=== PATIENT | male | born 1950 | race Two or more races ===

== ENCOUNTER 2019-06-20 05:58 | Inpatient (IN) | payer OTHER ==
--- NOTE | 2019-06-20 07:01 | PDOC ---
History of Present Illness - General Chief Complaint: Edema Stated Complaint: FACIAL SWELLING Time Seen by Provider: 06/20/19 07:00 History Source: Patient Exam Limitations: No Limitations - History of Present Illness Initial Comments: 68 year old male with PMH HTN, HLD, DM, gout, osteomyelitis presented to ED for oral swelling since this morning. Pt reported he was in his usual state of health last night, and awoke this AM around [id number] and bit the right side of his tongue, then noticed increasing swelling, prompting him to come to the ED. Pt denied shortness of breath, chest pain, fever, chills, nausea, vomiting. Pt reported mild difficulty with speaking 2/2 swelling under his tongue. ROS General: denied fever, chills, generalized weakness. HEENT: admitted to oral swelling. denied sore throat, rhinorrhea, ear pain. Cardiovascular: denied chest pain, palpitations, syncope, diaphoresis. Respiratory: denied shortness of breath, cough, sputum production, hemoptysis. Gastrointestinal: denied abdominal pain, nausea, vomiting, diarrhea, constipation, blood in stool. Genitourinary: denied dysuria, increased urinary frequency, hematuria, urinary incontinence, flank pain. Back: denied back pain. Musculoskeletal: denied joint pain, muscle pain, joint swelling. Neurological: denied headache, dizziness, numbness, tingling, weakness. Integumentary: denied rash, laceration, abrasion. Hematologic/Lymphatic: denied bruising or bleeding. PE Constitutional: Well-nourished, Well-developed, appearing stated age. HEENT: head is normocephalic, atraumatic. EOMI. PERRLA. swelling below tongue, concerning for ludwigs angina. abrasion to right tongue. no posterior pharyngeal erythema. uvula midline. no jaw tenderness or misalignment. Neck: supple. Full ROM. Cardiovascular: regular heart rhythm. no murmurs. no pericardial friction rub. Respiratory: clear to auscultation bilaterally. no crackles, rhonchi or wheezing. no stridor. Gastrointestinal: soft, nontender. normal bowel sounds. no rebound, guarding, masses. Extremities: peripheral pulses intact. no lower extremity edema. Neurological: CN 2-12 grossly intact. moves all four extremities. Psych: awake, alert, oriented x3. follows commands. answers questions appropriately. Past History - Past Medical History Allergies/Adverse Reactions: Allergies Allergy/AdvReac Type Severity Reaction Status Date / Time No Known Allergies Allergy Verified 06/20/19 06:34 Home Medications: Ambulatory Orders Aspirin [ASA -] 81 mg PO DAILY 06/20/19 Lisinopril 10 mg PO DAILY 06/20/19 Lovastatin 10 mg PO HS 06/20/19 Metformin HCl [Glucophage] 1,000 mg PO BID 06/20/19 - Psycho Social/Smoking Cessation Hx Smoking History: Never smoked Have you smoked in the past 12 months: No Information on smoking cessation initiated: No Hx Alcohol Use: No Drug/Substance Use Hx: No *Physical Exam - Vital Signs Last Vital Signs Temp Pulse Resp BP Pulse Ox 98.1 F 110 H 20 157/91 99 06/20/19 06:10 06/20/19 06:10 06/20/19 06:10 06/20/19 06:10 06/20/19 06:10 ED Treatment Course - LABORATORY CBC & Chemistry Diagram: 06/20/19 07:35 06/20/19 07:35 Medical Decision Making - Medical Decision Making 68 year old male with above PMH presented to ED for oral swelling since this AM. Concerning for ludwigs angina. Initial Vital Signs Temp Pulse Resp BP Pulse Ox 98.1 F 110 H 20 157/91 99 06/20/19 06:10 06/20/19 06:10 06/20/19 06:10 06/20/19 06:10 06/20/19 06:10 Afebrile. Tachycardic. No tachypnea. Hypertensive. No hypoxia on room air. Labs ordered: CBC, CMP, ESR, CRP, lactate, VBG, blood cultures Imaging ordered: CXR, CT neck soft tissue with IV contrast Medications ordered: Vancomycin, Zosyn, normal saline bolus 1000 cc once, tylenol IV, benadryl 25 mg IV once EKG performed at 0815: rate 112, regular rhythm, left axis, normal intervals, no acute ST changes, 1 PVC. CXR report: Name: [facility] DEPARTMENT OF RADIOLOGY Phys: Maria Ines Faustin RESIDENT : 1950 Age: 68 Sex: M [facility] Acct: [id number] Loc: [address] Exam Date: 06/20/19 Status: [place] [address] Unit Number: [id number] EXAM#: TYPE/EXAM: RESULT: [id number] RAD/CHEST X-RAY PORTABLE* Portable chest: Sepsis A single view of the chest reveals a weak inspiration with some central crowding and some right lower lung atelectatic change. The angles are sharp. The bones and soft tissues are intact. Impression: Weak inspiration. Right base atelectasis. Reported By: Nikita Sadler MD 06/20/19 0753 06/20/19 08:38 VBG VBG pH 7.41 (7.31-7.41) 06/20/19 07:35 POC VBG pCO2 49.1 mmHg (38-52) 06/20/19 07:35 POC VBG pO2 < 49 mmHg (28-48) H 06/20/19 07:35 VBG HCO3 31.1 mmol/L (23-29) H 06/20/19 07:35 VBG O2 Sat (Nitish) 56.6 % (70-80) L 06/20/19 07:35 VBG Base Excess 5.9 meq/l (-2-2) H 06/20/19 07:35 No acidosis. No CO2 retention. 06/20/19 08:53 CMP Sodium 137 mmol/L (136-145) 06/20/19 07:35 Potassium 4.2 mmol/L (3.5-5.1) 06/20/19 07:35 Chloride 101 mmol/L (98-107) 06/20/19 07:35 Carbon Dioxide 30 mmol/L (21-32) 06/20/19 07:35 Anion Gap 6 MMOL/L (8-16) L 06/20/19 07:35 BUN 12.6 mg/dL (7-18) 06/20/19 07:35 Creatinine 1.0 mg/dL (0.55-1.3) 06/20/19 07:35 Est GFR (CKD-EPI)AfAm 89.86 06/20/19 07:35 Est GFR (CKD-EPI)NonAf 77.54 06/20/19 07:35 Random Glucose 173 mg/dL (74-106) H 06/20/19 07:35 Lactic Acid 1.1 mmol/L (0.4-2.0) 06/20/19 07:19 Calcium 9.2 mg/dL (8.5-10.1) 06/20/19 07:35 Total Bilirubin 0.7 mg/dL (0.2-1) 06/20/19 07:35 AST 14 U/L (15-37) L 06/20/19 07:35 ALT 19 U/L (13-61) 06/20/19 07:35 Alkaline Phosphatase 62 U/L (45-117) 06/20/19 07:35 Troponin I < 0.02 ng/ml (0.00-0.05) 06/20/19 07:35 C-Reactive Protein 3.8 MG/DL (0.00-0.3) H 06/20/19 07:35 Total Protein 7.5 g/dl (6.4-8.2) 06/20/19 07:35 Albumin 3.7 g/dl (3.4-5.0) 06/20/19 07:35 No electrolyte abnormalities. No RAFAEL. No transaminitis. Troponin undetectable. Elevated CRP. 06/20/19 10:34 CBC WBC 8.2 K/mm3 (4.0-10.0) 06/20/19 07:35 RBC 4.77 M/mm3 (4.00-5.60) 06/20/19 07:35 Hgb 12.8 GM/dL (11.7-16.9) 06/20/19 07:35 Hct 38.1 % (35.4-49) 06/20/19 07:35 MCV 79.9 fl (80-96) L 06/20/19 07:35 MCH 26.8 pg (25.7-33.7) 06/20/19 07:35 MCHC 33.5 g/dl (32.0-35.9) 06/20/19 07:35 RDW 15.7 % (11.9-15.9) 06/20/19 07:35 Plt Count 207 K/MM3 (134-434) 06/20/19 07:35 MPV 9.9 fl (7.5-11.1) 06/20/19 07:35 Absolute Neuts (auto) 4.9 K/mm3 (1.5-8.0) 06/20/19 07:35 Neutrophils % 60.1 % (42.8-82.8) 06/20/19 07:35 Lymphocytes % 28.2 % (8-40) 06/20/19 07:35 Monocytes % 8.0 % (3.8-10.2) 06/20/19 07:35 Eosinophils % 3.1 % (0-4.5) 06/20/19 07:35 Basophils % 0.6 % (0-2.0) 06/20/19 07:35 Nucleated RBC % 0 % (0-0) 06/20/19 07:35 ESR 62 mm/hr (0-20) H 06/20/19 07:35 No leukocytosis. No anemia. Elevated ESR. 06/20/19 11:01 Radiology called to report pt has right sided tonsillitis. 06/20/19 11:06 Dr. Hill paged on his cell phone. 06/20/19 11:44 CT report: Name: [facility] DEPARTMENT OF RADIOLOGY Phys: Maria Ines Faustin RESIDENT : 1950 Age: 68 Sex: M [facility] Acct: [id number] Loc: [address] Exam Date: 06/20/19 Status: [place] [address] Unit Number: [id number] EXAM#: TYPE/EXAM: RESULT: [id number] CT/SOFT TISSUE NECK CT WITH CONTR Swelling beneath the tongue rule out Sushant's angina. CT neck with IV contrast enhancement. Direct axial images were obtained with coronal, sagittal reconstruction images. Patient received 100 cc of Omniscan 350. The visualized CSF spaces are normal. No evidence of edema, enhancing lesion is seen in the visualized brain parenchyma. The paranasal sinuses mastoid sinuses are not opacified. Symmetrical nasopharyngeal soft tissues The pharyngeal, laryngeal and tracheal airways are patent. Enlarged right palatine tonsils with heterogeneous enhancement, phlegmonous changes, without definite fluid collection, peripheral enhancement to suggest abscess. Tonsillolith is noted. Edema, inflammatory changes extending along the right pharyngeal wall to the level of the right piriform sinus with effacement of the sinus. Inflammatory changes are noted along the base of the tongue right submandibular space. 2 enhancing submental lymph nodes are noted. The platysma slightly thickened with induration of the subcutaneous fat. Few reactive right submandibular lymph nodes are noted. Well demarcated midline hyperdensity noted at base of the tongue concerning for incidental ectopic thyroid tissue. Few upper, lower teethes are noted. Focal osteolytic changes are noted in the right anterior aspect of the maxilla may represent dental related changes. There is no evidence of submandibular space mass. The parotid glands also appear normal and symmetrical in size, contour, density with no evidence of intraparotid mass or adenopathy. No evidence of prevertebral soft tissue swelling, retropharyngeal fluid collection or edema. No evidence of neck adenopathy. Unremarkable thyroid gland. The lung apices are clear. Normal enhancement of the major vessels of the neck. Normal bifurcation of common carotid arteries. No stenotic lesions are seen. Straightening of the cervical spine is observed on the sagittal images. Normal height of vertebral bodies. Intact odontoid. No evidence of widening of predental space. The intraspinal contents cannot be adequately evaluated due to the beam hardening artifacts. No bony destructive changes are seen. No lytic or blastic lesions are seen. Normal alignment of the facet joints. C6-C7, C7-T1. Disc space narrowing. Anterior spondylosis at C6-C7. Focal induration of the subcutaneous fat in the right posterior suboccipital region. Impression. Right palatine acute tonsillitis with phlegmonous changes, without fluid collection with peripheral enhancement to suggest abscess. Right tonsillolith is noted Inflammatory changes are noted along the base of the tongue right submandibular space. 2 enhancing submental lymph nodes are noted. Few reactive right submandibular lymph nodes are noted. Patent airways. No evidence of retropharyngeal fluid collection or edema. Normal enhancement of the major arterial , venous structures of the neck. Reported By: Steven Armijo MD 06/20/[address] Hill, he reported that if there is no abscess and he is clinically improving, the liklihood of needing airway intervention is low. He reported usually Ludwigs will have more pain than the pt is presenting with. He reported he can evaluate the patient tomorrow in the hospital if admitted, but is unable to come today. Will discuss with admitting team. PCP Lilly 06/20/19 13:[address] Atkins's care. 06/20/19 17:02 Sign out given to Dr. Medeiros, ICU PGY3 Resident, who will come to evaluate the patient. Discharge - Discharge Information Problems reviewed: Yes Clinical Impression/Diagnosis: Tonsillitis Condition: Guarded - Follow up/Referral - Patient Discharge Instructions - Post Discharge Activity
[2019-06-20] MEDS ORDERED: VANCOMYCIN 1,000 MG in DEXTROSE 5%-WATER - 250 ML IVPB ONE (07:12)
[2019-06-20] MEDS ORDERED: SODIUM CHLORIDE 1,000 ML IV STA (07:12)
[2019-06-20] MEDS ORDERED: PIPERACILLIN/TAZOB 4.5 GM 4.5 GM in DEXTROSE 5%-WATER 100 ML IVPB ONE (07:12)
[2019-06-20] MEDS ORDERED: ACETAMINOPHEN 1000 MG/100 ML VIAL (NON FORMULARY) IVPB ONE (07:22)
--- NOTE | 2019-06-20 07:54 | PDOC ---
Attending Attestation - Resident Resident Name: Roxie,Maria Ines - ED Attending Attestation I have performed the following: I have examined & evaluated the patient, The case was reviewed & discussed with the resident, I agree w/resident's findings & plan - HPI HPI: 06/20/19 07:47 68y/o M htn, dm, osteoarthritis p/w tongue swelling since yesterday. Pt was in usual state of good health, scheduled to follow-up with orthopedics for his ongoing arthritis issues, yesterday morning bit his tongue on the right side and starting around noon or 1 PM began noticing painless swelling to the tongue and mouth, presents now for evaluation. Positive difficulty speaking, no difficulty swallowing or breathing, no fevers or chills, no notable hyperglycemia, no stridor. 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 - Physicial Exam PE: 06/20/19 07:54 Afebrile, notably tachycardic at triage, improved on my examination Seated comfortably in stretcher speaking full sentences but slightly slurring his words secondary to tongue swelling. No stridor, trachea midline. Abrasion to the right tongue with asymmetric swelling on the right and edema across the floor of the mouth, no tenderness or induration or crepitus. Neck is supple, no lymphadenopathy, lungs are clear without wheezing. Poor dentition with some Decaying teeth on the lower right but no palpable dental abscess Heart is regular slight tachycardia No urticaria - Critical Care Time Total Critical Care Time: 80 Critical Care Statement: The care of this patient involved high complexity decision making to prevent further life threatening deterioration of the patient 's condition and/or to evaluate & treat vital organ system(s) failure or risk of failure. - Medical Decision Making 06/20/19 07:55 68-year-old male diabetic presents with tongue swelling and floor of mouth swelling over the last 24 hours, tachycardia at triage but otherwise no evidence of sepsis and hemodynamically stable here without acute airway compromise. Presentation is most concerning for infectious process such as Sushant's angina versus angioedema. airway monitoring, ENT consult Sepsis protocol initiated Broad-spectrum antibiotics Trial of Benadryl CT of the soft tissue neck with IV contrast Reassess, close monitoring, admission 06/20/19 10:27 labs wnl. received abx and benadryl. moderate improvement in sublingual swelling, pt feels much better but still edematous. CT read pending, airway remains patent. proceed with admission plan. Heart Score/ECG Review #1 ECG reviewed & interpreted by me at: 08:15 General ECG Interpretation: Sinus Rhythm (tachy at 112 with PVC noted), Normal Intervals (LAFB with qrs 110, qtc 475), No acute ischemic changes
[2019-06-20] MEDS ORDERED: VANCOMYCIN 1 GRAM (PRE-DOCKED) 1,000 MG/250 ML BAG IVPB ONE (08:10)
[2019-06-20] MEDS ORDERED: PIPERACILLIN/TAZOB 4.5 GM 4.5 GM/100 ML BAG IVPB ONE (08:10)
[2019-06-20 08:26] LABS: BASO % 0.6 % (0-2.0); EOS % 3.1 % (0-4.5); HEMATOCRIT 38.1 % (35.4-49); HEMOGLOBIN 12.8 GM/dL (11.7-16.9); LYMPH % 28.2 % (8-40); MCH 26.8 pg (25.7-33.7); MCHC 33.5 g/dl (32.0-35.9); MEAN CELL VOLUME 79.9 fl (80-96); MEAN PLT VOLUME 9.9 fl (7.5-11.1); NEUT % 60.1 % (42.8-82.8); PLATELET COUNT 207 K/MM3 (134-434); RBC 4.77 M/mm3 (4.00-5.60); RDW 15.7 % (11.9-15.9); WHITE BLOOD COUNT 8.2 K/mm3 (4.0-10.0)
[2019-06-20 08:31] LABS: VENOUS PC02 49.1 mmHg (38-52); VENOUS PH 7.41 (7.31-7.41); VENOUS PO2 < 49 mmHg (28-48)
[2019-06-20] MEDS ORDERED: ACETAMINOPHEN INJECTION 100 ML IVPB ONE (08:41)
[2019-06-20 08:45] LABS: INR 1.03 (0.83-1.09); PROTHROMBIN TIME (PATIENT) 12.2 SEC (9.7-13.0)
[2019-06-20 08:48] LABS: ACTIVATED PTT 30.2 SECONDS (25.2-36.5)
[2019-06-20 08:49] LABS: ALBUMIN 3.7 g/dl (3.4-5.0); BILIRUBIN,TOTAL 0.7 mg/dL (0.2-1); BLOOD UREA NITROGEN 12.6 mg/dL (7-18); CALCIUM 9.2 mg/dL (8.5-10.1); POTASSIUM 4.2 mmol/L (3.5-5.1); TOT PROT 7.5 g/dl (6.4-8.2)
[2019-06-20 10:28] LABS: ERYTHROCYTE SEDIMENTATION RATE 62 mm/hr (0-20)
--- NOTE | 2019-06-20 14:56 | HP ---
Admitting History and Physical - Primary Care Physician PCP: Reagan Atkins - Admission Chief Complaint: tongue swelling History of Present Illness: 68 year old male with PMH HTN, HLD, DM, gout, osteomyelitis presented to ED for oral swelling since this morning. Pt reported he was in his usual state of health last night, and awoke this AM around [id number] and bit the right side of his tongue, then noticed increasing swelling, prompting him to come to the ED. Pt denied shortness of breath, chest pain, fever, chills, nausea, vomiting. Pt reported mild difficulty with speaking 2/2 swelling under his tongue. - Smoking History Smoking history: Never smoked Have you smoked in the past 12 months: No - Alcohol/Substance Use Hx Alcohol Use: No Home Medications - Allergies Allergies/Adverse Reactions: Allergies Allergy/AdvReac Type Severity Reaction Status Date / Time No Known Allergies Allergy Verified 06/20/19 06:34 - Home Medications Home Medications: Ambulatory Orders Aspirin [ASA -] 81 mg PO DAILY 06/20/19 Lisinopril 10 mg PO DAILY 06/20/19 Lovastatin 10 mg PO HS 06/20/19 Metformin HCl [Glucophage] 1,000 mg PO BID 06/20/19 Cefuroxime Axetil [Ceftin -] 500 mg PO BID #16 tablet 06/22/19 Clindamycin [Cleocin -] 300 mg PO TID #24 capsule 06/22/19 Physical Examination Vital Signs: Vital Signs Temperature 98.1 F 06/20/19 06:10 Pulse Rate 110 H 06/20/19 06:10 Respiratory Rate 20 06/20/19 06:10 Blood Pressure 157/91 06/20/19 06:10 O2 Sat by Pulse Oximetry (%) 99 06/20/19 06:10 Constitutional: Yes: No Distress HENT: Yes: Pharyngeal Erythema, Other (Tongue not swollen at this point) Neck: Yes: Supple Cardiovascular: Yes: Regular Rate and Rhythm Respiratory: Yes: CTA Bilaterally Gastrointestinal: Yes: Normal Bowel Sounds Extremities: Yes: WNL Neurological: Yes: Alert, Oriented Labs: CBC, BMP 06/20/19 07:35 06/20/19 07:35 Problem List - Problems (1) Cellulitis Assessment/Plan: iv abx id consult monitor Code(s): L03.90 - CELLULITIS, UNSPECIFIED (2) HTN (hypertension) Assessment/Plan: hold antony inhibitors...possible cause of tongue swelling Code(s): I10 - ESSENTIAL (PRIMARY) HYPERTENSION (3) Diabetes Assessment/Plan: hold glucophage...had ct scan Code(s): E11.9 - TYPE 2 DIABETES MELLITUS WITHOUT COMPLICATIONS Assessment/Plan Laboratory Tests 06/20/19 06/20/19 06/20/19 07:19 07:35 07:35 WBC RBC Hgb Hct MCV MCH MCHC RDW Plt Count MPV Absolute Neuts (auto) Neutrophils % Lymphocytes % Monocytes % Eosinophils % Basophils % Nucleated RBC % ESR PT with INR 12.20 INR 1.03 PTT (Actin FS) 30.2 VBG pH POC VBG pCO2 POC VBG pO2 VBG HCO3 VBG O2 Sat (Nitish) VBG Base Excess Sodium Potassium Chloride Carbon Dioxide Anion Gap BUN Creatinine Est GFR (CKD-EPI)AfAm Est GFR (CKD-EPI)NonAf Random Glucose Lactic Acid 1.1 Calcium Total Bilirubin AST ALT Alkaline Phosphatase Troponin I < 0.02 C-Reactive Protein Total Protein Albumin 06/20/19 06/20/19 06/20/19 07:35 07:35 07:35 WBC 8.2 RBC 4.77 Hgb 12.8 Hct 38.1 MCV 79.9 L MCH 26.8 MCHC 33.5 RDW 15.7 Plt Count 207 MPV 9.9 Absolute Neuts (auto) 4.9 Neutrophils % 60.1 Lymphocytes % 28.2 Monocytes % 8.0 Eosinophils % 3.1 Basophils % 0.6 Nucleated RBC % 0 ESR 62 H PT with INR INR PTT (Actin FS) VBG pH 7.41 POC VBG pCO2 49.1 POC VBG pO2 < 49 H VBG HCO3 31.1 H VBG O2 Sat (Nitish) 56.6 L VBG Base Excess 5.9 H Sodium 137 Potassium 4.2 Chloride 101 Carbon Dioxide 30 Anion Gap 6 L BUN 12.6 Creatinine 1.0 Est GFR (CKD-EPI)AfAm 89.86 Est GFR (CKD-EPI)NonAf 77.54 Random Glucose 173 H Lactic Acid Calcium 9.2 Total Bilirubin 0.7 AST 14 L ALT 19 Alkaline Phosphatase 62 Troponin I C-Reactive Protein 3.8 H Total Protein 7.5 Albumin 3.7 Active Medications Generic Name Dose Route Start Last Admin Trade Name Freq PRN Reason Stop Dose Admin Acetaminophen 1,000 mg 06/20/19 14:58 Ofirmev Injection - IVPB Q6H PRN faver and pain Ceftriaxone Sodium 2 gm/ 100 mls @ 200 mls/hr 06/20/19 17:00 Dextrose IVPB DAILY CINDY Protocol Clindamycin Phosphate 600 mg in 50 mls @ 100 mls/hr 06/20/19 17:00 Cleocin 600 Mg Premix Ivpb - IVPB Q6H-IV CINDY Protocol
[2019-06-20] MEDS ORDERED: ACETAMINOPHEN 1000 MG/100 ML VIAL (NON FORMULARY) IVPB PRN (14:58)
--- NOTE | 2019-06-20 16:58 | PN ---
Progress Note (short form) - Note Progress Note: ID consult dictated imp/reccd 68 yo man developed some right tongue discomfort yesterday with lunch, later bit his tongue the tongeu became more swollen and he came to the ED no fevers or chills , no sob, reports saliva is "thick" no nausea or vomiting no diarrhea no recent illness received vanco/zosyn/benadry in the ED with improvement had an episode of tongue swelling 5 years ago after strawberries 5 years ago last dental work 2 years ago no sick contacts on ct scan has right tonsillar swelling with extension of edema to base of the tongue right submandibular space does not look toxic no fevers normal WBC throat swab sent from ED empiric coverage with clindamycin/ceftriaxone ENT to see- ICU evaluation called
[2019-06-20] MEDS: CLINDAMYCIN 600MG PREMIX IVPB 600 MG/50 ML BAG IVPB SCH ×2 (18:20→21:30)
[2019-06-20] MEDS ORDERED: CLINDAMYCIN 600MG PREMIX IVPB 600 MG/50 ML BAG IVPB ONE ×2 (18:24→21:26)
[2019-06-20] MEDS ORDERED: CEFTRIAXONE 2 GM/100 ML BAG IVPB ONE (18:24)
[2019-06-20] MEDS: CEFTRIAXONE 2 GM in DEXTROSE 5%-WATER 100 ML IVPB SCH (19:08)
--- NOTE | 2019-06-20 19:27 | CONSULT ---
Consultation: CONSULT REQUEST: ICU Consult HISTORY OF PRESENT ILLNESS: Patient is a 68 yo M with a PMHx of HTN, HLD, DM, presented to the ED because of worsening tongue swelling that occurred yesterday with lunch. Patient said he bit his tongue because his tongue was enlarged. He also said he had some shortness of breath and was difficult for him to breathe when his tongue was enlarged. He says he had a similar incident 5 years ago after eating strawberries and has never had any episodes since. Patient also mentioned having his Lisinopril recently increased 3 weeks ago from 10mg to 20mg. Patient denies recent illness, fevers, chills, nausea, vomiting, recently traveling, sick contact. In the ER, CT scan revealed right tonsillar swelling with extension of edema to base of the tongue right submandibular space. Benadryl was given. IV abx with Zosyn/Vanc. Patient symptoms improved. Currently vital signs stable. Patient comfortable in room air. REVIEW OF SYSTEMS: CONSTITUTIONAL: Absent: fever, chills, diaphoresis, generalized weakness, malaise, loss of appetite, weight change HEENT: Absent: rhinorrhea, nasal congestion, throat pain, throat swelling, difficulty swallowing, ear pain, eye pain CARDIOVASCULAR: Absent: chest pain, syncope, palpitations, irregular heart rate, lightheadedness , peripheral edema RESPIRATORY: sob Absent: cough, dyspnea with exertion, orthopnea, wheezing, stridor, hemoptysis GASTROINTESTINAL: Absent: abdominal pain, abdominal distension, nausea, vomiting, diarrhea, constipation, melena, hematochezia GENITOURINARY: Absent: dysuria, frequency, urgency, hesitancy, hematuria, flank pain, genital pain SKIN: Absent: rash, itching, pallor PHYSICAL EXAMINATION Vital Signs - 24 hr 06/20/19 06/20/19 06/20/19 06:10 09:30 14:00 Temperature 98.1 F Pulse Rate 110 H Pulse Rate [ 102 H 104 H Apical] Respiratory 20 25 H 17 Rate Blood Pressure 157/91 Blood Pressure 132/86 118/71 [Left Arm] O2 Sat by Pulse 99 95 94 L Oximetry (%) 06/20/19 18:54 Temperature Pulse Rate Pulse Rate [ 87 Apical] Respiratory 14 Rate Blood Pressure Blood Pressure 126/76 [Left Arm] O2 Sat by Pulse 97 Oximetry (%) GENERAL: Awake, alert, and fully oriented, in no acute distress. EYES: EOMI, PERRL EARS, NOSE, THROAT: +Bite rebecca on R side of tongue. oropharynx clear without exudates. NECK: supple LUNGS: Lungs CTA b/l, no stridor HEART: RRR, No MGR ABDOMEN: obese, +BS, NT, ND LOWER EXTREMITIES: 2+ pulses, No peripheral edema. NEUROLOGICAL: Cranial nerves II-XII intact. SKIN: no rashes or lesions noted. Laboratory Results - last 24 hr 06/20/19 06/20/19 06/20/19 07:19 07:35 07:35 WBC RBC Hgb Hct MCV MCH MCHC RDW Plt Count MPV Absolute Neuts (auto) Neutrophils % Lymphocytes % Monocytes % Eosinophils % Basophils % Nucleated RBC % ESR PT with INR 12.20 INR 1.03 PTT (Actin FS) 30.2 VBG pH POC VBG pCO2 POC VBG pO2 VBG HCO3 VBG O2 Sat (Nitish) VBG Base Excess Sodium Potassium Chloride Carbon Dioxide Anion Gap BUN Creatinine Est GFR (CKD-EPI)AfAm Est GFR (CKD-EPI)NonAf Random Glucose Lactic Acid 1.1 Calcium Total Bilirubin AST ALT Alkaline Phosphatase Troponin I < 0.02 C-Reactive Protein Total Protein Albumin 06/20/19 06/20/19 06/20/19 07:35 07:35 07:35 WBC 8.2 RBC 4.77 Hgb 12.8 Hct 38.1 MCV 79.9 L MCH 26.8 MCHC 33.5 RDW 15.7 Plt Count 207 MPV 9.9 Absolute Neuts (auto) 4.9 Neutrophils % 60.1 Lymphocytes % 28.2 Monocytes % 8.0 Eosinophils % 3.1 Basophils % 0.6 Nucleated RBC % 0 ESR 62 H PT with INR INR PTT (Actin FS) VBG pH 7.41 POC VBG pCO2 49.1 POC VBG pO2 < 49 H VBG HCO3 31.1 H VBG O2 Sat (Nitish) 56.6 L VBG Base Excess 5.9 H Sodium 137 Potassium 4.2 Chloride 101 Carbon Dioxide 30 Anion Gap 6 L BUN 12.6 Creatinine 1.0 Est GFR (CKD-EPI)AfAm 89.86 Est GFR (CKD-EPI)NonAf 77.54 Random Glucose 173 H Lactic Acid Calcium 9.2 Total Bilirubin 0.7 AST 14 L ALT 19 Alkaline Phosphatase 62 Troponin I C-Reactive Protein 3.8 H Total Protein 7.5 Albumin 3.7 Active Medications Generic Name Dose Route Start Last Admin Trade Name Freq PRN Reason Stop Dose Admin Acetaminophen 1,000 mg 06/20/19 14:58 Ofirmev Injection - IVPB Q6H PRN faver and pain Ceftriaxone Sodium 2 gm/ 100 mls @ 200 mls/hr 06/20/19 17:00 06/20/19 19:08 Dextrose IVPB 200 mls/hr DAILY CINDY Administration Protocol Clindamycin Phosphate 600 mg in 50 mls @ 100 mls/hr 06/20/19 17:00 06/20/19 18:20 Cleocin 600 Mg Premix Ivpb - IVPB 100 mls/hr Q6H-IV CINDY Administration Protocol ASSESSMENT/PLAN: #R [place] Acute tonsillitis #R/o Abscess #Lymphadenopathy #HTN #HLD #DM -IV abx per ID -IV fluids -Monitor vital signs -FU throat, blood cultures -comfortable on room air -supplemental O2 as needed -FU ENT reccs -Benadryl -monitor in ICU Dispo: We will continue to follow the patient. Thank you for this consultative opportunity. Visit type - Emergency Visit Emergency Visit: Yes ED Registration Date: 06/20/19 Care time: The patient presented to the Emergency Department on the above date and was hospitalized for further evaluation of their emergent condition. - New Patient This patient is new to me today: Yes Date on this admission: 06/22/19 - Critical Care Critical Care patient: Yes Total Critical Care Time (in minutes): 40 Critical Care Statement: The care of this patient involved high complexity decision making to prevent further life threatening deterioration of the patient 's condition and/or to evaluate & treat vital organ system(s) failure or risk of failure. ATTENDING PHYSICIAN STATEMENT I saw and evaluated the patient. I reviewed the resident's note and discussed the case with the resident. I agree with the resident's findings and plan as documented. SUBJECTIVE: OBJECTIVE: ASSESSMENT AND PLAN:
--- NOTE | 2019-06-20 20:53 | CONS ---
DATE OF CONSULTATION: DATE OF DICTATION: 06/20/2019 INFECTIOUS DISEASE CONSULTATION HISTORY OF PRESENT ILLNESS: This is a 68-year-old man developed some right tongue discomfort yesterday with lunch. He later bit his tongue. The tongue became more swollen, and he came to the emergency room this morning. On arrival in the ER this morning. He was in no shortness of breath. He denies fevers, chills, nausea, vomiting, but he has some difficulty speaking secondary to swelling. As well he reported to me thick saliva. He was in the ER given Benadryl, vancomycin, and Zosyn with improvement of his symptoms. He has not been on any new medications, and he reports no food allergies. Five years ago he had a reaction to strawberries that was similar to this, but he does not recall eating strawberries recently. His medications at home include aspirin, lisinopril which he has been on for a long time, lovastatin and metformin. He has no known drug allergies. PAST MEDICAL HISTORY: Notable for hypertension, hyperlipidemia, diabetes, and gout. He reports he recently has had swelling of his left leg and had an antibiotic and steroid injection in the legs, but he reports that after he came here and got Benadryl and antibiotics the swelling in his foot as well has improved. He has no known drug allergies. SOCIAL HISTORY: He lives in the community. There is no history of cigarette, alcohol, or substance use. Of note, he does use BiPAP at night, but they clean the BiPAP case frequently. PHYSICAL EXAMINATION: General: He is awake and alert. He is in no significant distress. Vital Signs: Temperature 98.1, pulse is 87, blood pressure is 126/76, respiratory rate 14, saturating 97% on room air. HEENT: Normocephalic. Eyes are anicteric. He is able to open his mouth. He has no trismus. He has multiple missing teeth. He has no obvious dental disease. Those teeth are not in good shape. He has no evidence of any pharyngitis. He has no exudates on his tonsils. He has some right-sided submandibular fullness on exam. Neck: Otherwise supple. Lungs: Clear to auscultation. Heart: Regular rate and rhythm. Abdomen: Soft, nontender. Extremities: Without edema. LABORATORY: White count 8.2, hemoglobin 12.8, platelets of 207, sedimentation rate 62, INR is 1, BUN and creatinine are 12 and 1 with normal LFTs. Blood cultures are pending. We did a drug culture as well. CAT scan of the soft tissue of his neck reveals evidence of right sided tonsillar swelling with extension of edema to the enlarged right tonsil with some phlegmonous changes with no abscess with some edema extending along the base of the tongue in the right submandibular space. There is no evidence of submandibular space mass. The parotids are normal. He has normal enhancements of the blood vessels, and he has got patent airways with no evidence of retropharyngeal collection. IMPRESSION: In summary, this is a 68-year-old man with unexplained right tonsillar swelling with extension to the base of the tongue. Does not correlate with his dental findings. He does not have any molars in that area to explain the submandibular swelling. He has no fevers or chills to explain the tonsillar findings. He does not look toxic. He has no fever with a normal white count, but he reports improvement. He was given vancomycin and Zosyn in the emergency room. We . Would empirically cover him with clindamycin and ceftriaxone to cover for oral anaerobes, methicillin-resistant Staphylococcus aureus, and group B strep. ENT has been contacted from the emergency room to see him as well. Would obtain an intensive care unit evaluation as well, as he appears to have improved from earlier today but is not clear which way he will go, and he may bear close observation in the intensive care unit for respiratory status. DENG BABIN M.D. [id number]
[2019-06-20] MEDS ORDERED: diphenhydrAMINE HCL 25 MG CAPSULE (FP) PO PRN (23:16)
[2019-06-21] MEDS ORDERED: CLINDAMYCIN 600MG PREMIX IVPB 600 MG/50 ML BAG IVPB ONE ×3 (03:52→16:16)
[2019-06-21] MEDS: CLINDAMYCIN 600MG PREMIX IVPB 600 MG/50 ML BAG IVPB SCH ×4 (04:27→21:55)
[2019-06-21 06:28] LABS: BASO % 0.6 % (0-2.0); EOS % 4.8 % (0-4.5); HEMATOCRIT 36.4 % (35.4-49); HEMOGLOBIN 12.2 GM/dL (11.7-16.9); LYMPH % 26.7 % (8-40); MCH 26.6 pg (25.7-33.7); MCHC 33.4 g/dl (32.0-35.9); MEAN CELL VOLUME 79.7 fl (80-96); MEAN PLT VOLUME 9.6 fl (7.5-11.1); MONO % 7.8 % (3.8-10.2); NEUT % 60.1 % (42.8-82.8); PLATELET COUNT 182 K/MM3 (134-434); RBC 4.57 M/mm3 (4.00-5.60); RDW 15.7 % (11.9-15.9); WHITE BLOOD COUNT 5.7 K/mm3 (4.0-10.0)
[2019-06-21 06:45] LABS: ALBUMIN 3.4 g/dl (3.4-5.0); BILIRUBIN,TOTAL 0.6 mg/dL (0.2-1); BLOOD UREA NITROGEN 10.6 mg/dL (7-18); CALCIUM 8.7 mg/dL (8.5-10.1); CREATININE 0.9 mg/dL (0.55-1.3); MAGNESIUM 1.9 mg/dL (1.8-2.4); PHOSPHOROUS 4.5 mg/dL (2.5-4.9); POTASSIUM 4.2 mmol/L (3.5-5.1); TOT PROT 6.8 g/dl (6.4-8.2)
--- NOTE | 2019-06-21 10:36 | EKG ---
Test Reason : Blood Pressure : / mmHG Vent. Rate : 112 BPM Atrial Rate : 112 BPM P-R Int : 160 ms QRS Dur : 110 ms QT Int : 348 ms P-R-T Axes : 038 -43 036 degrees QTc Int : 475 ms SINUS TACHYCARDIA WITH PREMATURE ATRIAL COMPLEXES WITH ABERRANT CONDUCTION LEFT AXIS DEVIATION ABNORMAL ECG NO PREVIOUS ECGS AVAILABLE Confirmed by Wagner Lynn MD ([id number]) on 06/21/2019 10:36:15 AM Also confirmed by MD Ni Edward ([id number]) on 06/21/2019 10:40:04 AM Referred By: Confirmed By:Trell Ni MD
[2019-06-21] MEDS ORDERED: CEFTRIAXONE 2 GM/100 ML BAG IVPB ONE (11:28)
[2019-06-21] MEDS: CEFTRIAXONE 2 GM in DEXTROSE 5%-WATER 100 ML IVPB SCH (11:39)
--- NOTE | 2019-06-21 12:11 | PN ---
Physical Exam: SUBJECTIVE: Patient seen and examined at bedside this morning in the ED. Endorses significant improvement. Talking about Thanksgiving plans. Denies any swelling at this time. ROS otherwise negative. Patient is comfortable at this time. HPI: Patient is a 68 yo M with a PMHx of HTN, HLD, DM, presented to the ED because of worsening tongue swelling that occurred yesterday with lunch. Patient said he bit his tongue because his tongue was enlarged. He also said he had some shortness of breath and was difficult for him to breathe when his tongue was enlarged. He says he had a similar incident 5 years ago after eating strawberries and has never had any episodes since. Patient also mentioned having his Lisinopril recently increased 3 weeks ago from 10mg to 20mg. Patient denies recent illness, fevers, chills, nausea, vomiting, recently traveling, sick contact. In the ER, CT scan revealed right tonsillar swelling with extension of edema to base of the tongue right submandibular space. Benadryl was given. IV abx with Zosyn/Vanc. Patient symptoms improved. Currently vital signs stable. Patient comfortable in room air. OBJECTIVE: Vital Signs Period Temp Pulse Resp BP Sys/Tafoya Pulse Ox Last 24 Hr 98 F-98.5 F 79-109 14-20 108-141/71-88 94-98 GENERAL: The patient is awake, alert, and fully oriented, in no acute distress. HEAD: Normal with no signs of trauma. EYES: PERRL, extraocular movements intact, sclera anicteric, conjunctiva clear. No ptosis. ENT: Mouth without any swelling - extremely wide view of oropharynx, ears normal , nares patent, oropharynx clear without exudates, moist mucous membranes. NECK: Trachea midline, full range of motion, supple. LUNGS: Breath sounds equal, clear to auscultation bilaterally, no wheezes, no crackles, no accessory muscle use. HEART: Regular rate and rhythm, S1, S2 without murmur, rub or gallop. ABDOMEN: Soft, nontender, nondistended, normoactive bowel sounds, no guarding, no rebound, no hepatosplenomegaly, no masses. EXTREMITIES: 2+ pulses, warm, well-perfused, no edema. NEUROLOGICAL: Cranial nerves II through XII grossly intact. Normal speech, gait not observed. PSYCH: Normal mood, normal affect. SKIN: Warm, dry, normal turgor, no rashes or lesions noted Laboratory Results - last 24 hr 06/20/19 06/21/19 06/21/19 21:33 05:35 05:35 WBC 5.7 RBC 4.57 Hgb 12.2 Hct 36.4 MCV 79.7 L MCH 26.6 MCHC 33.4 RDW 15.7 Plt Count 182 MPV 9.6 Absolute Neuts (auto) 3.4 Neutrophils % 60.1 Lymphocytes % 26.7 Monocytes % 7.8 Eosinophils % 4.8 H Basophils % 0.6 Nucleated RBC % 0 Sodium 138 Potassium 4.2 Chloride 103 Carbon Dioxide 30 Anion Gap 5 L BUN 10.6 Creatinine 0.9 Est GFR (CKD-EPI)AfAm 102.07 Est GFR (CKD-EPI)NonAf 88.07 Random Glucose 127 H Calcium 8.7 Phosphorus 4.5 Magnesium 1.9 Total Bilirubin 0.6 AST 12 L ALT 16 Alkaline Phosphatase 56 Total Protein 6.8 Albumin 3.4 Influenza A (Rapid) Negative Influenza B (Rapid) Negative Active Medications Generic Name Dose Route Start Last Admin Trade Name Mihaiq PRN Reason Stop Dose Admin Acetaminophen 1,000 mg 06/20/19 14:58 Ofirmev Injection - IVPB Q6H PRN faver and pain Diphenhydramine HCl 25 mg 06/20/19 23:16 Benadryl - PO Q6H PRN ALLERGIES Ceftriaxone Sodium 2 gm/ 100 mls @ 200 mls/hr 06/20/19 17:00 06/21/19 11:39 Dextrose IVPB 200 mls/hr DAILY CINDY Administration Protocol Clindamycin Phosphate 600 mg in 50 mls @ 100 mls/hr 06/20/19 17:00 06/21/19 09:45 Cleocin 600 Mg Premix Ivpb - IVPB 100 mls/hr Q6H-IV CINDY Administration Protocol ASSESSMENT/PLAN: #R [place] Acute tonsillitis #R/o Abscess #Lymphadenopathy #HTN #HLD #DM -IV abx per ID -IV fluids -Monitor vital signs -FU throat, blood cultures -Comfortable on room air -Supplemental O2 as needed -FU ENT reccs -Benadryl Patient no longer requiring ICU level monitoring at this time Transferred to Med/Surg Visit type - Emergency Visit Emergency Visit: Yes ED Registration Date: 06/20/19 Care time: The patient presented to the Emergency Department on the above date and was hospitalized for further evaluation of their emergent condition. - New Patient This patient is new to me today: Yes Date on this admission: 06/21/19 - Critical Care Critical Care patient: Yes Total Critical Care Time (in minutes): 36 Critical Care Statement: The care of this patient involved high complexity decision making to prevent further life threatening deterioration of the patient 's condition and/or to evaluate & treat vital organ system(s) failure or risk of failure. ATTENDING PHYSICIAN STATEMENT I saw and evaluated the patient. I reviewed the resident's note and discussed the case with the resident. I agree with the resident's findings and plan as documented. SUBJECTIVE: OBJECTIVE: ASSESSMENT AND PLAN:
--- NOTE | 2019-06-21 15:06 | CONSULT ---
Consult - text type - Consultation Consultation Note: ENT consult 68 yo man with sudden swelling in the right floor of mouth yesterday. Feels much better today. Neck CT showed no drainable collections and some right tonsil asymmetry extending to the base of tongue. P/WD obese BM sitting comfortably in a gurney in NAD Voice quality is normal Neck: no masses or tenderness OC/OP normal, with no swelling or asymmetry Imp: resolving oral cavity swelling of uncertain origin. Plan: No indication for ENT intervention at this time. Reconsult prn.
--- NOTE | 2019-06-21 17:39 | PN ---
Progress Note, Physician History of Present Illness: tolerating diet able to swallow - Current Medication List Current Medications: Active Medications Acetaminophen (Ofirmev Injection -) 1,000 mg IVPB Q6H PRN PRN Reason: faver and pain Diphenhydramine HCl (Benadryl -) 25 mg PO Q6H PRN PRN Reason: ALLERGIES Ceftriaxone Sodium 2 gm/ (Dextrose) 100 mls @ 200 mls/hr IVPB DAILY CINDY; Protocol Last Admin: 06/21/19 11:39 Dose: 200 mls/hr Clindamycin Phosphate (Cleocin 600 Mg Premix Ivpb -) 600 mg in 50 mls @ 100 mls /hr IVPB Q6H-IV CINDY; Protocol Last Admin: 06/21/19 16:15 Dose: 100 mls/hr - Objective Vital Signs: Vital Signs Temperature 98.1 F 06/21/19 16:26 Pulse Rate 90 06/21/19 16:26 Respiratory Rate 20 06/21/19 16:26 Blood Pressure 127/76 06/21/19 16:26 O2 Sat by Pulse Oximetry (%) 94 L 06/21/19 16:26 Constitutional: Yes: No Distress HENT: Yes: Atraumatic, Pharyngeal Erythema, Other (no swelling of tongue) Neck: Yes: Supple Cardiovascular: Yes: Regular Rate and Rhythm Respiratory: Yes: CTA Bilaterally Gastrointestinal: Yes: Normal Bowel Sounds Extremities: Yes: WNL Edema: No Neurological: Yes: Alert, Oriented Labs: CBC, BMP 06/21/19 05:35 06/21/19 05:35 INR, PTT INR 1.03 (0.83-1.09) 06/20/19 07:35 Problem List - Problems (1) Cellulitis Assessment/Plan: iv abx id consult monitor Code(s): L03.90 - CELLULITIS, UNSPECIFIED
[2019-06-21 18:26] VITALS: BMI 34.8
--- NOTE | 2019-06-21 18:37 | PN ---
Progress Note (short form) - Note Progress Note: feels improved swelling is much less seen by ENT able to eat Vital Signs Period Temp Pulse Resp BP Sys/T[place]oya Pulse Ox Last 24 Hr 98 F-98.5 F 79-109 14-20 108-141/74-90 94-98 tongue and cheek swelling diminished cor-rrr lungs clear abd soft,nt ext no edema CBC, BMP 06/21/19 05:35 06/21/19 05:35 Microbiology 06/20/19 07:35 Blood - Peripheral Venous Blood Culture - Preliminary NO GROWTH OBTAINED AFTER 24 HOURS, INCUBATION TO CONTINUE FOR 4 DAYS. 06/20/19 07:35 Blood - Peripheral Venous Blood Culture - Preliminary NO GROWTH OBTAINED AFTER 24 HOURS, INCUBATION TO CONTINUE FOR 4 DAYS. throat culture pending a/p right tonsillar swelling/base of mouth swelling resolving on clindamycin and ceftriaxone-etiology unclear plain to switch to po clindamycin 300 tid and ceftin 500 bid in am for total 10 days- now day 2 please call back if needed
[2019-06-21] MEDS ORDERED: diphenhydrAMINE HCL 25 MG CAPSULE (FP) PO PRN (19:40)
[2019-06-21] MEDS ORDERED: ACETAMINOPHEN 1000 MG/100 ML VIAL (NON FORMULARY) IVPB PRN (19:40)
[2019-06-22] MEDS: CLINDAMYCIN 600MG PREMIX IVPB 600 MG/50 ML BAG IVPB SCH ×3 (04:56→18:36)
[2019-06-22] MEDS ORDERED: DEXTROSE 5%-WATER 100 ML IVPB ONE (09:49)
[2019-06-22] MEDS ORDERED: CEFTRIAXONE 2 GM in DEXTROSE 5%-WATER 100 ML IVPB SCH (10:00)
[2019-06-22 16:01] VITALS: PULSE 96
--- NOTE | 2019-06-22 19:23 | DS ---
Physical Examination Vital Signs: Vital Signs Temperature 98.4 F 06/22/19 14:00 Pulse Rate 96 H 06/22/19 14:00 Respiratory Rate 18 06/22/19 14:00 Blood Pressure 140/93 06/22/19 14:00 O2 Sat by Pulse Oximetry (%) 95 06/22/19 09:00 Constitutional: Yes: No Distress HENT: Yes: Atraumatic Neck: Yes: Supple Cardiovascular: Yes: Regular Rate and Rhythm Respiratory: Yes: CTA Bilaterally Gastrointestinal: Yes: Normal Bowel Sounds Extremities: Yes: WNL Neurological: Yes: Alert, Oriented Labs: CBC, BMP 06/21/19 05:35 06/21/19 05:35 Discharge Summary Problems reviewed: Yes Reason For Visit: LUDWIGS ANGINA Current Active Problems Cellulitis (Acute) Tonsillitis (Acute) Condition: Guarded - Instructions Diet, Activity, Other Instructions: hold lisinopril..d/w your pmd about angioedema Referrals: ON STAFF,NOT [Primary Care Provider] - - Home Medications Comprehensive Discharge Medication List: Ambulatory Orders Aspirin [ASA -] 81 mg PO DAILY 06/20/19 Lisinopril 10 mg PO DAILY 06/20/19 Lovastatin 10 mg PO HS 06/20/19 Metformin HCl [Glucophage] 1,000 mg PO BID 06/20/19 Cefuroxime Axetil [Ceftin -] 500 mg PO BID #16 tablet 06/22/19 Clindamycin [Cleocin -] 300 mg PO TID #24 capsule 06/22/19 dc home fu pmd 2-3 days
[2019-06-22 19:31] VITALS: BP 127/70; TEMP 98.5
== END 2019-06-22 21:25 | disposition home or self-care (01) | DRG 153 ==
LOC: JER 05:58 → JERBED 12:25 → J4W 16:40 → JERBED 16:54 → J5S 06-21 17:00
PROVIDERS: ADMIT Internal Medicine; ATTEND Internal Medicine
DX: J03.90 Acute tonsillitis, unspecified (principal); K12.2 Cellulitis and abscess of mouth; I10 Essential (primary) hypertension; E78.5 Hyperlipidemia, unspecified; E11.9 Type 2 diabetes mellitus without complications; M10.9 Gout, unspecified; R59.1 Generalized enlarged lymph nodes
CPT/HCPCS: 36415; 70491-TC; 71045-TC-FY; 80053; 82803; 83605; 83735; 84100; 84484; 85025; 85610; 85651; 85730; 86140; 87040; 87070; 87804; 93005; 93010; 99285-25; J0131; J7030